=== PATIENT | female | born 1980 | race Caucasian/White ===

== ENCOUNTER 2018-05-09 05:33 | Day surgery (SDC) | payer OTHER ==
[~2018-05-09] VITALS: Ht 160 cm; Wt 71.9 kg
[~2018-05-09 05:33] MED LIST: CLINDAMYCIN HC150 MG PO; KLONOPIN2 MG PO; MOTRIN400 MG PO; MOTRIN800 MG PO; MULTIPLE VITAM1 EAC4 PO; NAPROXEN375 M2 PO; NO MEDS; NOHOMEMEDS; PERCOCET 5/31 TABLET PO; VALIUM10 MG PO; VALIUM5 MG PO; VENTOLIN HFA18 GM IH; no home meds
[2018-05-09 06:05] VITALS: BP 99/62
[2018-05-09] MEDS ORDERED: NORCO 5/3251 TABLET PO (08:44)
[2018-05-09] MEDS ORDERED: PERCOCET 5/31 TABLET PO (10:25)
[2018-05-09 10:32] VITALS: BP 112/59
[2018-05-09 11:15] VITALS: BP 112/57
== END 2018-05-09 11:19 | disposition home or self-care (01) ==
LOC: SDC 05:33
PROC: 0YU50JZ Supplement Right Inguinal Region with Synthetic Substitute, Open Approach (ICD-10-PCS; principal; 2018-05-09)
DX: K40.91 Unilateral inguinal hernia, without obstruction or gangrene, recurrent (principal); F17.200 Nicotine dependence, unspecified, uncomplicated; R01.1 Cardiac murmur, unspecified
CPT/HCPCS: C1781; J0131; J0330; J0690; J1100; J1170; J1885; J2250; J2405; J3010